=== PATIENT | male | born 1985 | race Caucasian/White ===

== ENCOUNTER 2018-03-20 08:21 | Emergency (ER) | payer BC ==
[~2018-03-20] VITALS: Ht 218.4 cm; Wt 165.9 kg
[2018-03-20] MEDS ORDERED: TOBRADEX EYE DRO5 ML OPTH (08:57)
== END 2018-03-20 09:11 | disposition home or self-care (01) ==
LOC: ED 08:21
DX: S05.01XA Injury of conjunctiva and corneal abrasion without foreign body, right eye, initial encounter (principal); W22.8XXA Striking against or struck by other objects, initial encounter
CPT/HCPCS: 99283